=== PATIENT | male | born 1975 | race Caucasian/White ===

== ENCOUNTER 2017-07-24 11:22 | Emergency (ER) | payer SELFPAY ==
[2017-07-24 11:26] VITALS: BMI 36.6
[2017-07-24 11:27] VITALS: BP 164/97
--- NOTE | 2017-07-24 12:04 | DR.GENAD ---
HPI - PCP Primary Care Physician: jatin Young HPI Comment HPI Comment: HISTORY BELOW. - Complaint/Symptoms Chief Complaint Doctors Comments: ECZEMA RASH EXTREMITIES WITH PUSTULAR LESIONS AND REDNESS IN VARIOUS HEALING STAGES. NO FEVER. SOME DRAINAGE PRESENT. Chief Complaint:: Patient c/o rash and blisters all over body. - Nurses notes reviewed Nurses Notes Review: Yes - Source History Provided: Patient - Mode of Arrival Mode of Arrival: Ambulatory - Timing Onset of Chief Complaint: 05/23/17 Came on: Gradually - Duration Duration: Constant Duration: Days - Severity Severity: Moderate PMH - PMH Past Medical History: Yes Past Medical History: Hypertension Past Surgical History: No - Family History History of Family Medical Conditions: Yes Family Medical History: Cancer, Hypertension - Social History Does patient currently use any type of tobacco product: No Have you used tobacco products in the last 12 months: No Type of Tobacco Use: None Does any household member use tobacco: No Alcohol Use: None Do you use any recreational Drugs:: No Lives Where: Home - infectious screening In the last 2 months have you had wt loss of >10#?: NO Have you had fever, night sweats or hemotysis?: No Have you traveled outside the country in the last 6 months?: No Isolation: Standard ROS - Review of Systems Constitutional: No Symptoms Reported Eyes: No Symptoms Reported ENTM: No Symptoms Reported Respiratoy: No Symptoms Reported Cardiovascular: No Symptoms Reported Gastrointestinal/Abdominal: No Symptoms Reported Genitourinary: No Symptoms Reported Neurological: No Symptoms Reported Musculoskeletal: No Symptoms Reported Integumentary: Rash (GENERALIZE RASH. REDNESS AND PUSTULAR LESIONS WITH DRAINAGE.) Hematologic/Lymphatic: No Symptoms Reported Endocrine: No Symptoms Reported All Other Systems: Reviewed and Negative PE - Vital Signs Vitals: Temperature 98.3 F Pulse Rate 106 Respiratory Rate 22 Blood Pressure 164/97 O2 Sat by Pulse Oximetry 97 - General Limitations: No Limitations General Appearance: Alert - Head Head Exam: Normal Inspection - Eyes Eye exam: Normal Appearance - ENT ENT Exam: Normal External Ear Exam External Ear Exam: Normal External Inspection TM/Canal Exam: Bilateral Normal Nose Exam: Normal Nose Exam Mouth Exam: Normal Inspection Throat Exam: Normal Inspection - Neck Neck Exam: Trachea Midline - Chest Chest Inspection: Symmetric Chest Wall Rise - Respiratory Respiratory Exam: Normal Lung Sounds Bilat Respiratory Exam: Bilateral Clear to Auscultation - Cardiovascular Cardiovascular Exam: Regular Rate, Normal Rhythm, Normal Heart Sounds - Abdominal Exam Abdominal Exam: Normal Bowel Sounds, Soft. negative: Tenderness - Extremities Extremities Exam: Other (RASH) - Back Back Exam: Normal Inspection - Neurologic Neurological Exam: Alert, Oriented X3 - Psychiatric Psychiatric Exam: Normal Affect, Normal Mood - Skin Skin Exam: Rash, Erythema (PUSTULAR LESIONS EXTREMITIES WITH CELLULITIS. SOME DRAINAGE NOTED.) MDM - Differential Diagnosis Differential Diagnosis: ABSCESS, RASH, CELLULITIS Course - Treatment Treatment: SEE ORDERS - Education/Counseling Education/Counseling: Patient, Education Educated On: Diagnosis, Needs for Follow Up ROR - Labs Reviewed Laboratory: 07/24/17 12:29 Elbow - Left Gram Stain - Final 07/24/17 12:29 Elbow - Left Wound Culture - Preliminary - Diagnosis Discharge Problem: Abscess, Rash Cellulitis Qualifiers: Site of cellulitis: other site Qualified Code(s): L03.818 - Cellulitis of other sites - Discharge Plan Disposition: 01 HOME, SELF-CARE Condition: Stable Prescriptions: Hydroxyzine Pamoate [Vistaril] 25 mg PO TID PRN #20 cap PRN Reason: Ibuprofen [MOTRIN TAB 800 MG *] 800 mg PO Q8H PRN #20 tab PRN Reason: Pain/Inflammation Sulfamethoxazole-Trimethoprim [BACTRIM DS TAB 800/160 MG *] 1 tab PO BID #20 tab - Follow ups/Referrals Follow ups/Referrals: JATIN,None [Primary Care Provider] - 07/28/17 Ancelmo Lucas [STAFF PHYSICIAN] - 07/28/17 - Instructions Instructions: Abscess, [id number], Cellulitis, Adult, [id number], Rash, [id number] Additional Instructions: RETURN TO ED IF WORSE
== END 2017-07-24 12:47 | disposition home or self-care (01) ==
LOC: ER 11:50
DX: L02.91 Cutaneous abscess, unspecified (principal); L03.818 Cellulitis of other sites; R21 Rash and other nonspecific skin eruption
CPT/HCPCS: 87070; 87075; 87077; 87186; 87205; 99282